=== PATIENT | female | born 1985 | race Caucasian/White ===

== ENCOUNTER 2016-11-23 09:17 | Emergency (ER) | payer SELFPAY ==
[2016-11-23 09:28] VITALS: RESP 18; TEMP 97.9; O2SAT 97
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
[2016-11-23] MEDS ORDERED: chlordiazePOXIDE 25 MG CAP PO ONE (10:26)
[2016-11-23 10:51] VITALS: BP 149/95; PULSE 89
== END 2016-11-23 10:57 | disposition home or self-care (01) ==
DX: S80.01XA Contusion of right knee, initial encounter (principal); S80.02XA Contusion of left knee, initial encounter; F10.230 Alcohol dependence with withdrawal, uncomplicated; V13.9XXA Unspecified pedal cyclist injured in collision with car, pick-up truck or van in traffic accident, initial encounter

== ENCOUNTER → 2016-12-08 | Outpatient (CLI) | payer OTHER | LOC: BMCIMAGING 08:17 | PROVIDERS: ATTEND Family Medicine | DX: M79.89 Other specified soft tissue disorders (principal); W57.XXXA Bitten or stung by nonvenomous insect and other nonvenomous arthropods, initial encounter ==